=== PATIENT | male | born 1990 | race Caucasian/White ===

== ENCOUNTER 2016-09-16 18:37 | Emergency (ER) | payer SELFPAY ==
[~2016-09-16] VITALS: Ht 175.3 cm; Wt 79.5 kg
[2016-09-16 18:52] LABS: GLUCOSE,POINT OF CARE 91 MG/DL (70-110)
[2016-09-16] MEDS ORDERED: MAGNESIUM SULFATE 2 GM, MVI, ADULT NO.1 WITH VIT K 10 ML, THIAMINE HCL 100 MG, FOLIC AC... IV ONE ×5 (19:00)
[2016-09-16 23:48] VITALS: BP 122/68
== END 2016-09-16 23:43 | disposition home or self-care (01) ==
LOC: EDBD 18:40 → EMS 18:40
DX: F10.129 Alcohol abuse with intoxication, unspecified (principal); R41.82 Altered mental status, unspecified; F15.10 Other stimulant abuse, uncomplicated; F17.200 Nicotine dependence, unspecified, uncomplicated; Y90.7 Blood alcohol level of 200-239 mg/100 ml
CPT/HCPCS: 36415; 80307; 82962; 96365; 99285; G0480; J3411; J3475; J3490 ×2; J7030